=== PATIENT | female | born 1985 | race Caucasian/White ===

== ENCOUNTER 2021-12-15 06:28 | Inpatient (IN) | payer SELFPAY ==
[~2021-12-15 06:28] MED LIST: Lactated Ringers 1,000 ML IV SCH; Lidocaine 1%/Sod Bicarbonate in NS 8.4% 1 ML Syringe IDERM PRN; Sodium Chloride 0.9% 10 ML Syringe FLUSH PRN; Sodium Chloride 0.9% 10 ML Syringe FLUSH SCH
[2021-12-15] MEDS ORDERED: Bupivacaine 0.5% 30 ML SDV ONE (07:28)
[2021-12-15] MEDS ORDERED: Propofol 200 MG/20 ML SDV ONE (07:29)
[2021-12-15] MEDS ORDERED: fentaNYL 250 MCG/5 ML SDV ONE (07:29)
[2021-12-15] MEDS ORDERED: Midazolam 1 MG/ML 2 ML SDV ONE (07:29)
[2021-12-15] MEDS ORDERED: Rocuronium 50 MG/5 ML Vial ONE ×2 (07:30→09:02)
[2021-12-15] MEDS ORDERED: Ketorolac 30 MG/ML SDV ONE (07:30)
[2021-12-15] MEDS ORDERED: Dexamethasone 4 MG/ML 5 ML MDV ONE (07:30)
[2021-12-15] MEDS ORDERED: Ondansetron 4 MG/2 ML SDV ONE (07:30)
[2021-12-15] MEDS ORDERED: Lidocaine 1% 4 ML ONE (07:36)
[2021-12-15] MEDS ORDERED: ceFAZolin 2 GM Vial ONE (08:17)
[2021-12-15] MEDS ORDERED: HYDROmorphone 0.5 MG/0.5 ML Syringe ONE ×2 (08:35→08:59)
[2021-12-15] MEDS ORDERED: Ondansetron 4 MG/2 ML SDV IVPUSH PRN ×2 (08:48→17:51)
[2021-12-15] MEDS ORDERED: HYDROmorphone 0.5 MG/0.5 ML Syringe IVPUSH PRN (08:48)
[2021-12-15] MEDS ORDERED: fentaNYL 100 MCG/2 ML SDV IVPUSH PRN (08:48)
[2021-12-15] MEDS ORDERED: Scopolamine 1.5 MG Transdermal Patch TRDERM ONE (08:49)
[2021-12-15] MEDS ORDERED: Lactated Ringers 1,000 ML ONE ×2 (09:06)
[2021-12-15] MEDS ORDERED: Neostigmine Methylsulfate 10 MG/10 ML MDV ONE (09:17)
[2021-12-15] MEDS ORDERED: Acetaminophen/oxyCODONE 325-5 MG Tab PO PRN (11:04)
[2021-12-15] MEDS ORDERED: Ibuprofen 600 MG Tab PO PRN (15:30)
[2021-12-15] MEDS ORDERED: Ketorolac 30 MG/ML SDV IVPUSH PRN (15:30)
[2021-12-15] MEDS: Docusate Sodium 100 MG Cap PO SCH (20:26)
[2021-12-15] MEDS: Acetaminophen/oxyCODONE 325-5 MG Tab PO PRN (20:38)
[2021-12-16] MEDS: Acetaminophen/oxyCODONE 325-5 MG Tab PO PRN ×2 (04:43→12:09)
[2021-12-16] MEDS: Docusate Sodium 100 MG Cap PO SCH (10:01)
== END 2021-12-16 13:00 | disposition home or self-care (01) | DRG 743 ==
LOC: JD.MS 06:28 → JD.OB 06:29
PROVIDERS: ADMIT Obstetrics & Gynecology; ATTEND Obstetrics & Gynecology
PROC: 0UB20ZZ Excision of Bilateral Ovaries, Open Approach (ICD-10-PCS; principal; 2021-12-15)
DX: D27.1 Benign neoplasm of left ovary (principal); D27.0 Benign neoplasm of right ovary; Z79.899 Other long term (current) drug therapy
CPT/HCPCS: 00840; 36415; 80051; 80061; 81025; 85025; 88304; A9270-GY; J0690; J1100; J1170; J1885; J2250; J2405; J2704; J2710; J3010; J3490; J7120